=== PATIENT | male | born 1960 | race Caucasian/White ===

== ENCOUNTER 2016-05-15 17:29 | Emergency (ER) | payer OTHER ==
[2016-05-15 17:43] VITALS: BP 117/71; PULSE 77; RESP 14; TEMP 98.6; O2SAT 93
--- NOTE | 2016-05-15 18:22 | UCPHY ---
H & P Time Seen by Provider: 05/15/16 18:01 Patient Type: Established HPI/ROS: CHIEF COMPLAINT: hurts to breathe HISTORY OF PRESENT ILLNESS: The patient is a 56-year-old male with a history of asthma who presents to the emergency department with complaints of URI symptoms. Patient states something is been going around the family. He has had a cough, nasal congestion, runny nose, and body aches. His cough has persisted. It is nonproductive. He has mild discomfort when breathing. No leg pain or swelling. No recent travel. No fevers or chills. REVIEW OF SYSTEMS: My complete review of systems is negative except as mentioned in the HPI. Past Medical/Surgical History: Includes asthma, hypertension, GERD Social history: The patient does not smoke Smoking Status: Never smoked Physical Exam: Vitals noted. O2 saturation 93%. Temperature 37. GENERAL: Well-appearing, in no acute distress, alert. HEENT: Eyes normal to inspection, normal pharynx, no signs of dehydration. NECK: No thyromegaly, no lymphadenopathy, supple. RESPIRATORY: Clear to auscultation bilaterally, no rales, rhonchi or wheezing. No respiratory distress. No accessary muscle use. Normal. CVS: Regular rate and rhythm, no rubs, murmurs, or gallops. ABDOMEN: Soft, nontender, nondistended, no organomegaly. BACK: Normal to inspection, no CVA tenderness. SKIN: Normal color, no rash, warm, dry. No pallor. EXTREMITIES: No pedal edema, no calf tenderness, no Homans sign or cords, no joint swelling. NEURO/PSYCH: Alert and oriented x3, normal mood and affect. Constitutional: Initial Vital Signs Temperature (C) 37 C 05/15/16 17:40 Heart Rate 77 05/15/16 17:40 Respiratory Rate 14 05/15/16 17:40 Blood Pressure 117/71 05/15/16 17:40 O2 Sat (%) 93 05/15/16 17:40 O2 Delivery Mode Room Air Allergies/Adverse Reactions: nickel Allergy (Verified 02/15/15 07:38) Home Medications: Medication Instructions Recorded AZITHROMYCIN [Z-PACK] 250 mg PO DAILY #1 packet 05/15/16 Allopurinol 05/15/16 Hydrocodone/APAP 5/325 [[place] 1 - 2 tab PO Q4 #13 tab 05/15/16 5/325 (RX)] Lisinopril 05/15/16 Testosterone 100mg/ml IM inj (*) 05/15/16 predniSONE 20 mg PO DAILY 4 Days 05/15/16 Medical Decision Making ED Course/Re-evaluation: In urgent care discussed possible etiologies with the patient. I discussed diagnostic options. Because the patient has asthma and reports an ongoing cough she will be treated for bronchitis with antibiotics, inhaler and steroid. I do not feel the patient needs an x-ray at this time. I discussed this with the patient answers questions. Patient was given warnings prior to leaving. He will return with worsening symptoms. Differential Diagnosis: My differential includes but is not limited to bronchitis, pneumonia, pulmonary embolus, influenza, bacteremia, sepsis Departure - Departure Disposition: Home, Routine, Self-Care Clinical Impression: Acute bronchitis Qualifiers: Bronchitis organism: unspecified organism Qualifier Code: (J20.9) Acute bronchitis, unspecified Condition: Good Instructions: Acute Bronchitis (ED) Additional Instructions: Return with increasing cough, shortness of breath, chest pain, leg pain or any other concerns. Use your medications as directed. Continue to use your inhaler at least 3 times a day. Referrals: Catrina Blackwell MD [Medical Doctor] - 5-7 days, if not improved Prescriptions: Hydrocodone/APAP 5/325 [[place] 5/325 (RX)] 1 - 2 tab PO Q4 #13 tab AZITHROMYCIN [Z-PACK] 250 mg PO DAILY #1 packet predniSONE 20 mg PO DAILY 4 Days - PQRS PQRS Measurement: My PQRS negative my PQRS negative my PQRS negative my PQRS negative 134: Depression screening and followup, PRIME MD-PHQ2 (12 years and older) Over the last 2 weeks, how often have you been bothered by any of the following problems? 1. Feeling down, depressed, or hopeless? 2. Little interest or pleasure in doing things? Patient answered no to both 1 and 2 130: Documentation of medications. Reviewed all patient medications, doses, route and frequency. 226: Do you smoke? No.
[2016-05-15] MEDS ORDERED: predniSONE 20 MG TAB PO ONE (18:25)
== END 2016-05-15 18:35 | disposition home or self-care (01) ==
LOC: CED 17:29
DX: R07.1 Chest pain on breathing (principal); R05 Cough; R09.81 Nasal congestion; M79.1 Myalgia; R09.89 Other specified symptoms and signs involving the circulatory and respiratory systems; J45.909 Unspecified asthma, uncomplicated
CPT/HCPCS: 99214-PO; G0463-PO

== ENCOUNTER → 2017-12-28 | Outpatient (CLI) | payer OTHER | LOC: CIMAGING 07:20 | PROVIDERS: ATTEND Internal Medicine Gastroenterology | DX: K82.9 Disease of gallbladder, unspecified (principal); K76.0 Fatty (change of) liver, not elsewhere classified; Z86.010 Personal history of colon polyps | CPT/HCPCS: 76705-PO ==